=== PATIENT | female | born 1940 | race Caucasian/White ===

== ENCOUNTER 2018-09-26 14:12 | Emergency (ER) | payer MEDICARE ==
[~2018-09-26] VITALS: Ht 162.6 cm; Wt 65.0 kg
[~2018-09-26 14:12] MED LIST: AMOX1TAB15 PO; HYDR-4384 PO
[2018-09-26 14:28] VITALS: BP 131/81
[2018-09-26] MEDS ORDERED: HYDROcodone/acetaminophen 5mg/325mg tablet PO ONE (15:25)
[2018-09-26] MEDS ORDERED: HYDR-4384 PO (15:29)
== END 2018-09-26 15:46 | disposition home or self-care (01) ==
LOC: ER 14:13
DX: S42.251A Displaced fracture of greater tuberosity of right humerus, initial encounter for closed fracture (principal); S05.11XA Contusion of eyeball and orbital tissues, right eye, initial encounter; Z79.899 Other long term (current) drug therapy; W01.198A Fall on same level from slipping, tripping and stumbling with subsequent striking against other object, initial encounter; Y93.01 Activity, walking, marching and hiking; Y92.488 Other paved roadways as the place of occurrence of the external cause; Y99.8 Other external cause status
CPT/HCPCS: 73030; 99283

== ENCOUNTER 2022-09-23 07:55 | Day surgery (SDC) | payer MEDICARE ==
[2022-09-16 13:04] LABS: CLARITY,URINE CLEAR (Clear); COLOR,URINE YELLOW (Yellow); GLUCOSE, URINE NEGATIVE (Neg); KETONES,URINE NEGATIVE (Neg); LEUKOCYTE ESTERASE ,URINE NEGATIVE (Neg); NITRITES, URINE NEGATIVE (Neg); OCCULT BLOOD,URINE NEGATIVE (Neg); PROTEIN,URINE NEGATIVE (Neg); UROBILINOGEN,URINE 0.2 E.U/dL (0.2-1.0)
[2022-09-16 13:19] LABS: UA COLLECTION TYPE CLN CATCH MIDSTREAM
[2022-09-16 13:23] LABS: BASOPHILS # (AUTO) 0.1 X10'3 (0-0.2); BASOPHILS % (AUTO) 1.4 % (0-1); EOSINOPHILS # (AUTO) 0.1 X10'3 (0-0.9); EOSINOPHILS % (AUTO) 3.7 % (0-6); LYMPHOCYTES % (AUTO) 28.6 % (21-51); MEAN CORPUSCULAR HEMOGLOBIN 34.8 PG (27.0-31.0); MEAN CORPUSCULAR HGB CONC 33.8 g/dL (33.0-36.5); MEAN PLATELET VOLUME 7.2 FL (7.4-10.4); MONOCYTES # (AUTO) 0.4 X10'3 (0-0.9); MONOCYTES % (AUTO) 11.5 % (2-12); NEUTROPHILS # (AUTO) 1.9 X10'3 (1.8-7.7); NEUTROPHILS % (AUTO) 54.8 % (42-75); PRE OP HEMATOCRIT 43.2 % (35.0-45.0); PRE OP HEMOGLOBIN 14.6 g/dL (12.0-16.0); PRE OP PLATELET COUNT 361 X10'3 (140-440); RED BLOOD COUNT 4.19 X10'6 (4.20-5.60); RED CELL DISTRIBUTION WIDTH 13.2 % (11.5-14.5)
[2022-09-16 13:35] LABS: ALBUMIN 3.8 G/DL (3.4-5.0); ALKALINE PHOSPHATASE 58 IU/L (46-116); BLOOD UREA NITROGEN 19 MG/DL (7-18); BUN/CREATININE RATIO 19.8 (10.0-20.0); CALCIUM 9.2 MG/DL (8.5-10.1); CHLORIDE 103 MMOL/L (99-107); CREATININE 0.96 MG/DL (0.40-0.90); PRE OP ALT 18 U/L (30-65); PRE OP ANION GAP 9 (8-16); PRE OP AST 16 U/L (10-37); PRE OP BILIRUB, TOTAL 0.4 MG/DL (0.0-1.0); PRE OP GLUCOSE 97 MG/DL (70-104); PRE OP POTASSIUM 4.3 MMOL/L (3.4-5.1); PRE OP SODIUM 138 MMOL/L (135-145); TOTAL CARBON DIOXIDE 26.1 MMOL/L (24-32); TOTAL PROTEIN 7.6 G/DL (6.4-8.2); eGFR 56 ML/MIN
[2022-09-16 13:52] LABS: HEMOGLOBIN A1C 5.2 % (4.5-6.2)
[2022-09-17 08:51] LABS: THYROXINE (T4) 6.7 ug/dL (4.5-12.0); TRIIODOTHYRONINE (T3) 89 ng/dL (71-180)
[~2022-09-23] VITALS: Ht 162.6 cm; Wt 61.2 kg
[2022-09-23] VITALS (25 sets, daily range): BP systolic 123–178; BP diastolic 66–94
[~2022-09-23 07:55] MED LIST changes: -AMOX1TAB15 PO; +ASPI-1071 PO; -HYDR-4384 PO; +LISI5TAB22 PO; +cefazolin 2gm/D5W 100mL 100 ML IV ONE; +famotidine 20mg tablet PO ONE; +ringers solution, lacted 1,000 ML IV SCH
[2022-09-23 09:26] LABS: CHOL/HDL RATIO 2.3 (0.00-4.99); CHOLESTEROL 261 MG/DL (0-200); HDL CHOLESTEROL 114 MG/DL (35-60); LDL CHOLESTEROL 120 MG/DL (50-100); TRIGLYCERIDES 45 MG/DL (20-135)
[2022-09-23] MEDS ORDERED: proCHLORperazine 10 MG/2 ml inj IV PRN (09:45)
[2022-09-23] MEDS ORDERED: meperidine/PF 25mg/ml syringe IV PRN ×3 (09:45)
[2022-09-23] MEDS ORDERED: morphine 4 MG/ML inj SYRINge IV PRN (09:45)
[2022-09-23] MEDS ORDERED: ringers solution, lacted 1,000 ML IV SCH (09:45)
[2022-09-23] MEDS ORDERED: ondansetron/PF 4mg/2ml inj IV PRN (09:45)
[2022-09-23] MEDS ORDERED: BUPIVAcaine/PF 2.5 mg/ml (0.25%) 30ml vial ONE (11:22)
[2022-09-23] MEDS ORDERED: midazolam 1 mg/ML 2ml injection ONE (11:28)
[2022-09-23] MEDS ORDERED: fentaNYL/PF 50MCG/1 ML 2ML syringe ONE (11:28)
[2022-09-23] MEDS ORDERED: propofol inj 20 ML IV ONE (11:29)
[2022-09-23] MEDS ORDERED: rocuronium 10mg/ml inj IV ONE (11:29)
[2022-09-23] MEDS ORDERED: neostigmine methylsulfate 1 MG/ML 10ml vial ONE (11:50)
[2022-09-23] MEDS ORDERED: sevoflurane 250ml liquid IH ONE (11:50)
[2022-09-23] MEDS ORDERED: dexamethasone sod phosphate 10mg/ml inj ONE (11:50)
[2022-09-23] MEDS ORDERED: glycopyrrolate 0.2mg/ml inj ONE (11:50)
[2022-09-23] MEDS ORDERED: LIDOcaine 2% (20mg/ml) 5ml vial ONE (12:00)
[2022-09-23] MEDS ORDERED: acetaminophen 1,000mg/100ml IV 100 ML IV ONE (12:14)
[2022-09-23] MEDS ORDERED: ondansetron/PF 4mg/2ml inj ONE (12:20)
--- NOTE | 2022-09-23 13:00 | NUR ---
Received from OR via [facility] , accompanied by Anesthesiologist and report given by [facility] Anesthesiologist. PATIENT WAKING UP, DENIES PAIN, V/S WNL, PIV 20G RIGHT FOREARM, DERMABONDED LAPS SITES CLOSED C/D/I TO ABDOMEN. Addendum: 09/23/22 at 1346 by Werner Hermosillo RN Amended: Links added.
[2022-09-23] MEDS: morphine 2 MG/ML inj. syringe IV PRN ×2 (15:25→17:11)
--- NOTE | 2022-09-23 17:45 | NUR ---
ALL DISCHARGE CRITERIA HAS BEEN MET. VSS, PAIN AT A TOLERABLE LEVEL, ABLE TO SAFELY AMBULATE AND TRANSFER SELF. IV TAKEN OUT WITHOUT ANY COMPLICATIONS. ALL DISCHARGE INSTRUCTIONS COVERED WITH PATIENT AND ALL QUESTIONS ANSWERED. PATIENT TAKEN OUT VIA WHEELCHAIR WITH ALL BELONGINGS TO PERSONAL VEHICLE WHERE FRIEND DROVE PATIENT HOME. Addendum: 09/23/22 at 1805 by Werner Hermosillo RN Amended: Links added.
== END 2022-09-23 17:45 | disposition home or self-care (01) ==
LOC: PAS 07:55
PROVIDERS: ATTEND Surgery
DX: K43.9 Ventral hernia without obstruction or gangrene (principal); I10 Essential (primary) hypertension; E78.5 Hyperlipidemia, unspecified; E55.9 Vitamin D deficiency, unspecified; E66.9 Obesity, unspecified; Z68.23 Body mass index [BMI] 23.0-23.9, adult; Z79.82 Long term (current) use of aspirin; Z79.899 Other long term (current) drug therapy; Z72.89 Other problems related to lifestyle; Z87.891 Personal history of nicotine dependence
CPT/HCPCS: 36415; 49591; 80053; 80061; 81003; 82948; 83036; 84439; 84443; 84480; 85025; 93005; C1713; J0131; J0690; J1100; J2175; J2250; J2270; J2405; J2704; J2710; J3010; J3490; J7030; J7120; Z7506; Z7508; Z7512; 84436; A4618; A7000; C1776